=== PATIENT | male | born 1990 | race Hispanic/Latino ===

== ENCOUNTER 2021-12-16 20:01 | Emergency (ER) | payer OTHER ==
[2021-12-16] MEDS ORDERED: ONDANSETRON 4 MG/2 ML VIAL ONE (21:15)
[2021-12-16] MEDS ORDERED: MORPHINE 4 MG/ML SYR ONE (21:15)
[2021-12-16] MEDS ORDERED: NA CHLORIDE 0.9% 1,000 ML ONE (21:15)
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
[2021-12-16 22:00] LABS: Absolute Lymphocytes (CBC) 1.9 K/uL (0.7-4.9); Hematocrit 41.7 % (39.6-49.0); MPV 9.7 fL (7.6-11.3); RBC Red Blood Cell Count 4.78 M/uL (4.33-5.43)
[2021-12-16 22:12] LABS: Bilirubin Direct 0.1 mg/dL (0-0.2); Bilirubin Total 0.4 mg/dL (0.2-1.0); Potassium 3.6 mmol/L (3.5-5.1); Protein, Total 7.4 g/dL (6.4-8.2)
[2021-12-16 22:14] LABS: Protime INR 1.04
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
[2021-12-17] MEDS ORDERED: HYDROCODONE/APAP 5/325 MG TAB ONE (00:24)
[2021-12-17 00:54] VITALS: TEMP 98.6
[2021-12-17 00:59] VITALS: BP 136/78; O2SAT 98
--- NOTE | 2021-12-17 07:53 | EKG ---
Test Date: 2021-12-16 Test Time: 20:20:58 [employer]ist: CASEY MEASUREMENT RESULTS: Intervals: Rate: 96 NH: 160 QRSD: 86 QT: 324 QTc: 409 Maria Stein: P: 55 NH: 160 QRS: 73 T: 23 INTERPRETIVE STATEMENTS: Normal sinus rhythm Normal ECG No previous ECG available for comparison Electronically Signed On 12-17-21 07:52:28 CDT by Howard Robbins
== END 2021-12-17 00:36 | disposition home or self-care (01) ==
LOC: ER 20:01
DX: S20.211A Contusion of right front wall of thorax, initial encounter (principal); S30.1XXA Contusion of abdominal wall, initial encounter; S50.11XA Contusion of right forearm, initial encounter; S40.011A Contusion of right shoulder, initial encounter; S60.221A Contusion of right hand, initial encounter; V49.40XA Driver injured in collision with unspecified motor vehicles in traffic accident, initial encounter; F17.210 Nicotine dependence, cigarettes, uncomplicated
CPT/HCPCS: 96361; 93005; 85025; 80048; 36415; 86900; 86850; 85610; 82565; 86901; 80076; 85730; 70450; 72125; 71260; 74177; 73130; 73090; 73060; 73030; 73562; 96375; 96374; 99285; Q9967; J7030; J2405